=== PATIENT | female | born 2000 | race Caucasian/White ===

== ENCOUNTER 2019-12-28 17:13 | Emergency (ER) | payer OTHER, SELFPAY ==
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
== END 2019-12-28 18:59 | disposition home or self-care (01) ==
LOC: ERS 17:13
DX: S16.1XXA Strain of muscle, fascia and tendon at neck level, initial encounter (principal); V89.2XXA Person injured in unspecified motor-vehicle accident, traffic, initial encounter
CPT/HCPCS: 72125

== ENCOUNTER 2024-04-18 13:51 | Emergency (ER) | payer BC, SELFPAY | END 2024-04-18 15:44 | disposition home or self-care (01) | LOC: ERS 13:51 | DX: S71.152A Open bite, left thigh, initial encounter (principal); W54.0XXA Bitten by dog, initial encounter | CPT/HCPCS: 99283 ==